=== PATIENT | male | born 1960 | race Two or more races ===

== ENCOUNTER 2022-05-11 12:50 | Emergency (ER) | payer OTHER ==
[~2022-05-11] VITALS: Ht 170.2 cm; Wt 90.7 kg
[~2022-05-11 12:50] MED LIST: ENALAPRIL MALE2.5 MG; GLUCOPHAGE XR500 MG PO; LANTUS SOLOSTAR3 ML; PERCOCET 5/3251 TAB PO
[2022-05-11] MEDS ORDERED: MUPIROCIN1 G1 TOP (16:06)
[2022-05-11] MEDS ORDERED: AMOX-CLAV 875-1 EACH PO (16:06)
[2022-05-11] MEDS ORDERED: KETO10TA2 PO (16:06)
== END 2022-05-11 16:23 | disposition home or self-care (01) ==
LOC: ER 12:50
DX: S61.452A Open bite of left hand, initial encounter (principal); W55.01XA Bitten by cat, initial encounter; Y93.9 Activity, unspecified; Y92.009 Unspecified place in unspecified non-institutional (private) residence as the place of occurrence of the external cause; Y99.9 Unspecified external cause status